=== PATIENT | male | born 1990 | race Caucasian/White ===

== ENCOUNTER 2018-11-24 15:18 | Emergency (ER) | payer SELFPAY ==
[~2018-11-24] VITALS: Ht 182.9 cm; Wt 74.8 kg
[2018-11-24] MEDS ORDERED: NKM (15:30)
[2018-11-24 15:33] VITALS: BP 135/85
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
[2018-11-24] MEDS ORDERED: VOLTAREN100 G1 TP (17:25)
[2018-11-24] MEDS ORDERED: NAPROXEN500 M2 ORAL (17:25)
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
[2018-11-24 17:34] VITALS: BP 127/78
--- NOTE | 2018-11-24 17:35 | NUR ---
ER DISCHARGE NOTE: Patient is cleared to be discharged per ERMD, with friend, pt is aox4, on room air, with stable vital signs. pt was given dc and prescription instructions, pt was able to verbalize understanding, pt id band removed. pt is able to ambulate with steady gait. pt took all belongings.
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
== END 2018-11-24 17:35 | disposition home or self-care (01) ==
LOC: EMR 15:48
DX: S00.93XA Contusion of unspecified part of head, initial encounter (principal); S80.02XA Contusion of left knee, initial encounter; S80.01XA Contusion of right knee, initial encounter; S40.011A Contusion of right shoulder, initial encounter; V23.4XXA Motorcycle driver injured in collision with car, pick-up truck or van in traffic accident, initial encounter; Y92.410 Unspecified street and highway as the place of occurrence of the external cause; R51 Headache
CPT/HCPCS: 70450; 99284